=== PATIENT | female | born 1945 | race Caucasian/White ===

== ENCOUNTER 2016-12-18 19:38 | Emergency (ER) | payer MEDICARE ==
[~2016-12-18] VITALS: Ht 170.2 cm; Wt 55.8 kg
[~2016-12-18 19:38] MED LIST: BACTRIM DS1 TAB PO
[2016-12-18] MEDS ORDERED: PROZAC10 MG PO (20:11)
[2016-12-18 21:17] LABS: INFLUENZA A NONE DETECTED (NONE DETECT); INFLUENZA B NONE DETECTED (NONE DETECT)
[2016-12-18 22:20] VITALS: BP 120/60
== END 2016-12-18 22:28 | disposition home or self-care (01) ==
LOC: ED 19:38
PROVIDERS: Emergency Medicine
DX: R50.9 Fever, unspecified (principal)

== ENCOUNTER 2017-12-30 09:05 | Emergency (ER) | payer MEDICARE ==
[~2017-12-30] VITALS: Ht 170.2 cm; Wt 60.0 kg
[~2017-12-30 09:05] MED LIST changes: +PROZAC10 MG PO
[2017-12-30 10:13] LABS: HEMATOCRIT 46.1 % (37.0-47.0); HEMOGLOBIN 15.1 g/dl (12.0-16.0); IMMATURE GRANULOCYTES 0.2 % (0.0-1.0); MEAN CELL VOLUME 94.5 fL CALC (80.0-100.0); MEAN CORPUSCULAR HGB 30.9 pG CALC (26.0-32.0); MEAN CORPUSCULAR HGB CONC 32.8 g/L CALC (32.0-36.0); NEUT# 2.84 thou/uL (2.00-7.15); RED BLOOD COUNT 4.88 mill/uL (4.20-5.60); RED CELL DISTRI WIDTH 13.6 % (11.5-15.5)
[2017-12-30 10:22] LABS: ALBUMIN 4.2 g/dL (3.2-5.0); ANION GAP 14 (6-22 (CALC)); BUN 12 mg/dL (8-23); BUN/CREATININE RATIO 16 (12-20 (CALC)); CARBON DIOXIDE 27 mmol/l (22-30); CHLORIDE 105 mmol/l (95-108); CREATININE 0.7 mg/dL (0.5-1.0); GFR > 60 ML/MIN (>=60 (CALC)); GFR FOR AFR.AMER. > 60 ML/MIN (>=60 (CALC)); LIPASE 227 u/l (23-300); POTASSIUM 4.2 mmol/l (3.5-5.1); SODIUM 142 mmol/l (137-146)
[2017-12-30 10:46] LABS: ALKALINE PHOSPHATASE 317 u/l (38-126); SGOT/AST 1498 u/l (9-36)
[2017-12-30 10:47] LABS: SGPT/ALT 1148 u/l (11-66)
[2017-12-30] MEDS ORDERED: TORADOL PO (12:40)
[2017-12-30] MEDS ORDERED: ONDANSETRON4 MG PO (12:40)
[2017-12-30 12:54] VITALS: BP 126/63
== END 2017-12-30 12:54 | disposition home or self-care (01) ==
LOC: ED 09:05
PROVIDERS: Emergency Medicine
DX: K80.20 Calculus of gallbladder without cholecystitis without obstruction (principal)
CPT/HCPCS: Q9967

== ENCOUNTER → 2018-01-24 | Day surgery (SDC) | payer MEDICARE ==
[~2018-01-24] VITALS: Ht 170.2 cm; Wt 54.4 kg
[~2018-01-24] MED LIST changes: +CALTRATE 603 PO; +MOTRIN800 MG PO; +ONDANSETRON4 MG PO; +PERCOCET 5/325M1 TAB PO; +TORADOL PO
[2018-01-24 10:45] VITALS: BP 130/57
== END | disposition home or self-care (01) ==
LOC: ORM 06:02
PROVIDERS: ATTEND Surgery
PROC: 0FT44ZZ Resection of Gallbladder, Percutaneous Endoscopic Approach (ICD-10-PCS; principal; 2018-01-24)
DX: K80.10 Calculus of gallbladder with chronic cholecystitis without obstruction (principal)

== ENCOUNTER 2022-04-19 15:40 | Emergency (ER) | payer MEDICARE ==
[~2022-04-19] VITALS: Ht 170.2 cm; Wt 72.7 kg
[~2022-04-19 15:40] MED LIST changes: +PROLIA60 MG/ML SC
[2022-04-19 18:32] VITALS: BP 151/93
[2022-04-19 19:00] VITALS: BP 149/75
[2022-04-19 19:31] VITALS: BP 146/87
[2022-04-19 20:23] VITALS: BP 145/73
[2022-04-19 21:01] VITALS: BP 144/76
== END 2022-04-19 21:13 | disposition home or self-care (01) ==
LOC: ED 15:40
DX: S70.02XA Contusion of left hip, initial encounter (principal); W01.0XXA Fall on same level from slipping, tripping and stumbling without subsequent striking against object, initial encounter; Y92.019 Unspecified place in single-family (private) house as the place of occurrence of the external cause